=== PATIENT | male | born 1960 | race Caucasian/White ===

== ENCOUNTER 2016-08-30 13:33 | Emergency (ER) | payer BC, OTHER ==
[2016-08-30 13:38] VITALS: O2SAT 95
--- NOTE | 2016-08-30 14:33 | EDPHY ---
H & P Stated Complaint: GOMEZ X2 days Time Seen by Provider: 08/30/16 14:12 HPI/ROS: CHIEF COMPLAINT: Headache HISTORY OF PRESENT ILLNESS: The patient presents to the ED with a 2 day history of an occipital headache. The patient reports his headache began with running. It initially improved however returned again today with recurrent exertion. The patient states that it is moderate in nature. The patient denies any acute numbness or weakness. He denies fall or trauma. He denies history of neck injury or cervical manipulation. The patient does take a daily baby aspirin. The patient denies any anticoagulant use. The patient denies history of spinal surgery. REVIEW OF SYSTEMS: A comprehensive 10 point review of systems is otherwise negative aside from elements mentioned in the history of present illness. Source: Patient Exam Limitations: No limitations - Personal History Current Tetanus/Diphtheria Vaccine: Yes Current Tetanus Diphtheria and Acellular Pertussis (TDAP): Yes - Medical/Surgical History Hx Asthma: No Hx Chronic Respiratory Disease: No Hx Diabetes: No Hx Cardiac Disease: No Hx Renal Disease: No Hx Cirrhosis: No Hx Alcoholism: No Hx HIV/AIDS: No Hx Splenectomy or Spleen Trauma: No Other PMH: afrin x 3 weeks off and on( educated re med use). denies pmh - Social History Smoking Status: Never smoked - Physical Exam Exam: General Appearance: Alert, no distress Eyes: Pupils equal and round no pallor or injection ENT, Mouth: Mucous membranes moist Respiratory: There are no retractions, lungs are clear to auscultation Cardiovascular: Regular rate and rhythm Gastrointestinal: Abdomen is soft and nontender, no masses, bowel sounds normal Neurological: A&O, normal motor function, normal sensory exam, normal cranial nerves Skin: Warm and dry, no rashes Musculoskeletal: Tenderness to palpation noted in the occipital region of the neck, paracervical in nature Extremities: symmetrical, full range of motion Psychiatric: Patient is oriented X 3, there is no agitation Constitutional: Initial Vital Signs Temperature (C) 36.2 C 08/30/16 13:35 Heart Rate 63 08/30/16 13:35 Respiratory Rate 16 08/30/16 13:35 Blood Pressure 108/73 08/30/16 13:35 O2 Sat (%) 95 08/30/16 13:35 O2 Delivery Mode Room Air Allergies/Adverse Reactions: No Known Allergies Allergy (Verified 09/15/11 20:07) Home Medications: Medication Instructions Recorded Amoxicillin Trihydrate 2 cap PO Q12 10 Days 09/15/11 [Amoxicillin 500mg capsule] Fluticasone Nasal [Flonase nasal 2 sprays NASAL DAILY #1 mdi 09/15/11 spray] No Medications [No Known] 09/15/11 Amoxicillin/Clavulanate Pot 875 mg PO BID #14 tab 02/13/14 [Augmentin 875 MG TAB (RX)] Fluticasone Nasal [Flonase Nasal 2 sprays NASAL DAILY #1 mdi 02/13/14 [place] (RX)] Medical Decision Making - Diagnostics Imaging Results: Imaging Impressions Head CT 08/30/16 14:43 Impression: There is no acute abnormality identified on this unenhanced CT evaluation. If there is further clinical concern regarding the patient's symptoms, MR imaging is suggested, if not otherwise contraindicated. Findings were discussed with Paul Alonso MD at 15:49, on 08/30/2016. Head CTA 08/30/16 14:43 Impression: There is no flow-limiting stenosis identified. Findings were discussed with Paul Alonso at 16:05, on 08/30/2016. Measurement of carotid stenosis is based on velocity parameters that correlate the residual internal carotid diameter with [place] Symptomatic Carotid Endarterectomy Trial (NASCET) based stenosis levels. Neck CTA 08/30/16 14:43 Impression: There is no flow-limiting stenosis identified. Findings were discussed with Paul Alonso at 16:05, on 08/30/2016. Measurement of carotid stenosis is based on velocity parameters that correlate the residual internal carotid diameter with [place] Symptomatic Carotid Endarterectomy Trial (NASCET) based stenosis levels. ED Course/Re-evaluation: The patient presents to the ED for evaluation of an acute occipital headache which began with exertion several days ago. The patient is noted to be neurologically intact. The patient had an IV established. The patient was taken for noncontrast head CT scan which demonstrated no evidence of intracranial hemorrhage or mass. Additionally given the patient's complaints of neck pain underwent a CT angiogram of the head and neck which was also normal. The patient was re-evaluated at 4:40 p.m.. I explained to him the results. Based upon the patient's exam, his chief complaint is really one of neck pain. At this point time we have excluded dissection. Subarachnoid hemorrhage has been excluded to a lesser degree given the timing of his symptoms. I have told the patient that for definitive assessment of his headache a lumbar puncture would be indicated. I explained to the patient the risks and benefits of undergoing LP that I cannot be 100% certain of subarachnoid hemorrhage exclusion without performing the test. The patient does decline lumbar puncture at this point time. He is comfortable returning to the emergency department for any severe headache, numbness, weakness or other concerns. The patient is able to articulate the risks and benefits of declining lumbar puncture as well as the current sensitivity limits of noncontrast head CT scan in the setting of 2 days of intermittent symptoms. Differential Diagnosis: Differential diagnosis considered includes subarachnoid hemorrhage, intracranial hemorrhage, dissection, occipital neuralgia, [employer] mass - Data Points Laboratory Results: 08/30/16 14:34 POC Hgb 16.7 gm/dL gm/dL (13.7-17.5) POC Hct 49 % % (40-51) POC Sodium 142 mEq/L mEq/L (134-144) POC Potassium 4.1 mEq/L mEq/L (3.3-5.0) POC Chloride 104 mEq/L mEq/L (97-110) POC BUN 30 mg/dL H mg/dL (7-23) POC Creatinine 1.1 mg/dL mg/dL (0.7-1.3) POC Glucose 92 mg/dL mg/dL (70-100) Point of Care Test Results: 08/30/16 14:34 POC Sodium 142 POC Potassium 4.1 POC Chloride 104 POC BUN 30 H POC Creatinine 1.1 POC Glucose 92 Departure - Departure Disposition: Home, Routine, Self-Care Clinical Impression: Occipital headache, Neck pain Condition: Good Instructions: Acute Headache (ED) Additional Instructions: 1. Take Ibuprofen or Motrin 600 mg by mouth three times a day. 2. Please return to the ED for severe headache, numbness, weakness or other concerns. 3. As we discussed without performing lumbar puncture we have not fully excluded subarachnoid hemorrhage however your CT scan and CT angiogram demonstrate no evidence of an obvious surgical aneurysm or bleeding. 4. Please follow-up with your primary care provider as scheduled. 5. You have been given the number of our on-call neurologist to schedule a follow-up visit with for any mild persistent symptoms. Referrals: Ranjan Vegas DO [Medical Doctor] - As per Instructions
[2016-08-30] MEDS ORDERED: IOPAMIDOL (ISOVUE 370) 100 ML BTL IV ONE (15:10)
[2016-08-30 16:19] VITALS: RESP 18
[2016-08-30 16:53] VITALS: BP 147/75; PULSE 53; TEMP 97.7
== END 2016-08-30 16:53 | disposition home or self-care (01) ==
DX: R51 Headache (principal); M54.2 Cervicalgia
CPT/HCPCS: 82947-QW; Q9967

== ENCOUNTER 2017-06-28 17:18 | Emergency (ER) | payer BC ==
--- NOTE | 2017-06-28 17:41 | EDPHY ---
H & P Stated Complaint: RUQ abd pain Time Seen by Provider: 06/28/17 17:31 HPI/ROS: CHIEF COMPLAINT: Right upper quadrant abdominal pain x1 week HISTORY OF PRESENT ILLNESS: 57-year-old male with no history of abdominal surgeries complaining of intermittent right upper quadrant abdominal pain for the past 1 week. Seems to be related to food intake. Currently asymptomatic. No nausea or vomiting. No radiation pain. No back pain. No syncope no near syncope. No chest pain. No dyspnea. No cough. No URI symptoms. Bowel movements normal. Urinary habits normal. No trauma. No rash no vesicles. Nonexertional. No trauma. PRIMARY CARE PROVIDER: None REVIEW OF SYSTEMS: A ten point review of systems was performed and is negative with the exception of the items mentioned in the HPI PAST MEDICAL & SURGICAL HISTORY: No pertinent medical or surgical history SOCIAL HISTORY: Nonsmoker no alcohol use PHYSICAL EXAM (Prior to examination, patient consented to physical exam, hands were washed and my usual and customary physical exam procedures followed) 1) GENERAL: Well-developed, well-nourished, alert and oriented. Appears to be in no acute distress. 2) HEAD: Normocephalic, atraumatic 3) HEENT: Pupils equal, round, reactive to light bilaterally. Sclera anicteric. Nasopharynx, oropharynx, clear, no lesions. Moist mucous membranes 4) NECK: Full range of motion, no meningeal signs. 5) LUNGS: Clear auscultation bilaterally, no wheezes, no rhonchi, no retractions. 6) HEART: Regular rate and rhythm, no murmur, no heave, no gallop. 7) ABDOMEN: No guarding, no rebound, no focal tenderness, negative McBurney's, positive Duke's negative Rovsing's, negative peritoneal sign, 8) MUSCULOSKELETAL: Moving all extremities, no focal areas of tenderness, no obvious trauma. No peripheral edema or discoloration. 9) BACK: No CVA tenderness, no midline vertebral tenderness, no fluctuance, no step-off, no obvious trauma, no visual or palpable abnormality. 10) SKIN: No rash, no petechiae. 11) Psychiatric: Patient is oriented X 3, there is no agitation. DIFFERENTIAL DIAGNOSIS: In no particular order, including but not limited to biliary colic, cholecystitis, peptic ulcer disease, pancreatitis, and gastroenteritis. This is a partial list of diagnoses considered. These considerations are based on history, physical exam, past history and reassessment. - Personal History Current Tetanus/Diphtheria Vaccine: Unsure Current Tetanus Diphtheria and Acellular Pertussis (TDAP): Unsure - Medical/Surgical History Hx Asthma: No Hx Chronic Respiratory Disease: No Hx Diabetes: No Hx Cardiac Disease: No Hx Renal Disease: No Hx Cirrhosis: No Hx Alcoholism: No Hx HIV/AIDS: No Hx Splenectomy or Spleen Trauma: No Other PMH: afrin x 3 weeks off and on( educated re med use). denies pmh - Social History Smoking Status: Never smoked Constitutional: Initial Vital Signs Temperature (C) 36.5 C 06/28/17 17:23 Heart Rate 55 L 06/28/17 17:23 Respiratory Rate 16 06/28/17 17:23 Blood Pressure 122/76 H 06/28/17 17:23 O2 Sat (%) 95 06/28/17 17:23 O2 Delivery Mode Room Air Allergies/Adverse Reactions: No Known Allergies Allergy (Verified 06/28/17 17:21) Home Medications: Medication Instructions Recorded Ibuprofen 06/28/17 Medical Decision Making - Diagnostics Imaging Results: Imaging Impressions Abdomen Ultrasound 06/28/17 17:37 Impression: Normal right upper quadrant ultrasound. Results called and discussed with Cas Boyle on 06/28/2017, 18:13. Images reviewed myself ED Course/Re-evaluation: 8:15 p.m.: Re-evaluation with serial examinations. He continues to appear well. I discussed his negative ultrasound of the gallbladder, is normal laboratory studies including liver function studies and bilirubin, normal urinalysis. Addition he has no skin manifestations to suggest zoster. Specific etiology of his symptoms is incompletely clear at this time. I think that cardiac and/or pulmonary etiology such as pulmonary embolus, lower lobe pneumonia, less than likely in this patient absence of respiratory complaints in absence of risk factors. At this time I do not think that further diagnostic studies are indicated from the ER. However have recommend close follow-up. He does not have primary care provider. I have given him the name of the on-call outpatient medicine provider Dr. Stella Miller to establish care. Definitely in the meantime if he develops chest pain, shortness of breath , skin lesion , or any other symptoms he is to return to the ER immediately for re-evaluation. He feels comfortable being discharged. Care of patient under supervision of secondary supervising physician Dr Hatfield. - Data Points Laboratory Results: Laboratory Results 06/28/17 18:10 06/28/17 18:10 06/28/17 06/28/17 06/28/17 19:35 18:10 18:10 WBC 4.37 10^3/uL 10^3/uL (3.80-9.50) RBC 4.79 10^6/uL 10^6/uL (4.40-6.38) Hgb 14.6 g/dL g/dL (13.7-17.5) Hct 42.3 % % (40.0-51.0) MCV 88.3 fL fL (81.5-99.8) MCH 30.5 pg pg (27.9-34.1) MCHC 34.5 g/dL g/dL (32.4-36.7) RDW 12.2 % % (11.5-15.2) Plt Count 124 10^3/uL L 10^3/uL (150-400) MPV 11.9 fL H fL (8.7-11.7) Neut % (Auto) 52.6 % % (39.3-74.2) Lymph % (Auto) 33.4 % % (15.0-45.0) [place] % (Auto) 8.5 % % (4.5-13.0) Eos % (Auto) 3.9 % % (0.6-7.6) Baso % (Auto) 1.4 % % (0.3-1.7) Nucleat RBC Rel Count 0.0 % % (0.0-0.2) Absolute Neuts (auto) 2.30 10^3/uL 10^3/uL (1.70-6.50) Absolute Lymphs (auto) 1.46 10^3/uL 10^3/uL (1.00-3.00) Absolute Monos (auto) 0.37 10^3/uL 10^3/uL (0.30-0.80) Absolute Eos (auto) 0.17 10^3/uL 10^3/uL (0.03-0.40) Absolute Basos (auto) 0.06 10^3/uL 10^3/uL (0.02-0.10) Absolute Nucleated RBC 0.00 10^3/uL 10^3/uL (0-0.01) Immature Gran % 0.2 % % (0.0-1.1) Immature Gran # 0.01 10^3/uL 10^3/uL (0.00-0.10) Sodium 141 mEq/L mEq/L (135-145) Potassium 4.2 mEq/L mEq/L (3.3-5.0) Chloride 105 mEq/L mEq/L (97-110) Carbon Dioxide 25 mEq/l mEq/l (22-31) Anion Gap 15 mEq/L mEq/L (8-16) BUN 27 mg/dL H mg/dL (7-23) Creatinine 1.3 mg/dL mg/dL (0.7-1.3) Estimated GFR 57 Glucose 102 mg/dL H mg/dL (70-100) Calcium 9.2 mg/dL mg/dL (8.5-10.4) Total Bilirubin 0.5 mg/dL mg/dL (0.1-1.4) Conjugated Bilirubin 0.4 mg/dL mg/dL (0.0-0.5) Unconjugated Bilirubin 0.1 mg/dL mg/dL (0.0-1.1) AST 36 IU/L IU/L (17-59) ALT 42 IU/L IU/L (21-72) Alkaline Phosphatase 70 IU/L IU/L (38-126) Total Protein 7.6 g/dL g/dL (6.3-8.2) Albumin 4.0 g/dL g/dL (3.5-5.0) Lipase 152 IU/L IU/L (23-300) Urine Color PALE YELLOW Urine Appearance CLEAR Urine pH 6.0 (5.0-7.5) Ur Specific [place] 1.010 (1.002-1.030) Urine Protein NEGATIVE (NEGATIVE) Urine Ketones NEGATIVE (NEGATIVE) Urine Blood NEGATIVE (NEGATIVE) Urine Nitrate NEGATIVE (NEGATIVE) Urine Bilirubin NEGATIVE (NEGATIVE) Urine Urobilinogen NEGATIVE EU EU (0.2-1.0) Ur Leukocyte Esterase NEGATIVE (NEGATIVE) Urine RBC NONE SEEN /hpf /hpf (0-3) Urine WBC 1-3 /hpf /hpf (0-3) Ur Epithelial Cells NONE SEEN /lpf /lpf (NONE-1+) Urine Glucose NEGATIVE (NEGATIVE) Medications Given: Discontinued Medications Sodium Chloride (Ns) 1,000 mls @ 0 mls/hr IV ONCE ONE PRN Reason: Wide Open Stop: 06/28/17 19:35 Last Admin: 06/28/17 19:42 Dose: 1,000 mls Departure - Departure Disposition: Home, Routine, Self-Care Clinical Impression: Abdominal pain Qualifiers: Abdominal location: right upper quadrant Qualified Code(s): R10.11 - Right upper quadrant pain Condition: Good Instructions: Acute Abdominal Pain (ED) Additional Instructions: Seek immediate medical attention if you develop new or worsening symptoms, if you develop fevers, chills, if you develop chest pain, shortness of breath, rash , inability to tolerate oral intake or any other symptoms that concerns you. Referrals: Stella Wright MD [[facility] Primary Care Provider] - 2-3 days, call for appt.
[2017-06-28 18:21] LABS: PLATELET COUNT 124 10^3/uL (150-400)
[2017-06-28 19:19] VITALS: BP 119/85
[2017-06-28] MEDS ORDERED: NS 1,000 ML IV ONE (19:34)
== END 2017-06-28 20:26 | disposition home or self-care (01) ==
DX: R10.11 Right upper quadrant pain (principal)